=== PATIENT | male | born 1930 | race Caucasian/White ===

== ENCOUNTER → 2018-01-20 14:00 | Outpatient (CLI) | payer MEDICARE ==
[~2018-01-20 14:00] MED LIST: ASPIRIN EC325 M1 PO; BETAPACE 80 MG80 MG PO; LIPITOR40 MG PO; NORVASC5 MG PO; PLAVIX75 MG PO
[2018-02-03 13:10] VITALS: BMI 26.3
== END | disposition home or self-care (01) ==
LOC: D.CT 14:00
DX: I65.23 Occlusion and stenosis of bilateral carotid arteries (principal)

== ENCOUNTER 2018-02-01 16:06 | Inpatient (IN) | payer MEDICARE ==
[~2018-02-01] VITALS: Ht 170.2 cm; Wt 78.6 kg
[2018-02-01 17:18] LABS: BASOPHILS 0.6 % (0-2); HEMATOCRIT 34.5 % (42.0-54.0); HEMOGLOBIN 11.7 g/dL (13.5-17.5); IMMATURE GRANULOCYTES 0.4 % (0-5); MCH 32.1 pg (26.0-34.0); MCHC 33.9 g/dL (31.0-37.0); MCV 94.8 fL (80.0-100.0); MEAN PLATELET VOLUME 10.8 fL (7.4-10.4); MONOCYTES 12.2 % (2-11); NEUTROPHILS 47.8 % (40-80); PLATELET COUNT 165 10x3/uL (130-400); RBC 3.64 10x6/uL (4.20-6.10); RDW 13.2 % (11.5-14.5); WBC 5.1 10x3/uL (4.8-10.8)
[2018-02-01 17:41] LABS: INR 1.03 (0.85-1.17); PROTIME 13.1 SECONDS (11.6-15.0)
[2018-02-01 17:42] LABS: APTT 32.2 SECONDS (22.8-39.4)
[2018-02-01 17:48] LABS: ALBUMIN 3.4 g/dL (3.4-5.0); ALKALINE PHOSPHATASE 64 U/L (46-116); ALT (SGPT) 26 U/L (10-68); BILIRUBIN - TOTAL 0.46 mg/dL (0.2-1.3); CALC OSMOLALITY 282 mosm/kg (275-300); CALCIUM 8.8 mg/dL (8.5-10.1); CARBON DIOXIDE 26.4 mmol/L (21.0-32.0); CHLORIDE - SERUM 104 mmol/L (98-107); CREATININE - SERUM 0.8 mg/dL (0.6-1.3); GLUCOSE 104 mg/dL (74-106); POTASSIUM - SERUM 4.8 mmol/L (3.5-5.1); PROTEIN - SERUM 6.5 g/dL (6.4-8.2); SODIUM 140 mmol/L (136-145); UREA NITROGEN 24 mg/dL (7-18); eGFR NON AFRICAN AMERICAN > 90 mL/min (90-120)
[2018-02-01 21:25] VITALS: BP 142/78
[2018-02-01 23:21] VITALS: BP 142/78; BMI 26.9
[2018-02-02 00:50] VITALS: BP 127/70
[2018-02-02 04:50] VITALS: BP 102/45
[2018-02-02] MEDS ORDERED: NORVASC5 MG PO (07:13)
[2018-02-02] MEDS ORDERED: LIPITOR40 MG PO (07:14)
[2018-02-02] MEDS ORDERED: BETAPACE 80 MG80 MG PO (07:14)
[2018-02-02] MEDS ORDERED: ASPIRIN EC325 M1 PO (07:15)
[2018-02-02 08:08] VITALS: BP 133/83
[2018-02-02 11:06] VITALS: BP 139/86
[2018-02-02 15:45] VITALS: BP 140/90
[2018-02-02 20:00] VITALS: BP 115/74
[2018-02-03 01:00] VITALS: BP 122/59
[2018-02-03 05:11] VITALS: BP 130/50
[2018-02-03 08:16] VITALS: BP 92/43
[2018-02-03 11:56] VITALS: BP 113/57
[2018-02-03 13:10] VITALS: Ht 170.2 cm; Wt 78.6 kg
[2018-02-03 15:48] VITALS: BP 110/65
[2018-02-03 20:00] VITALS: BP 137/102
[2018-02-04 01:00] VITALS: BP 110/61
[2018-02-04 04:30] VITALS: BP 97/43
[2018-02-04 10:05] VITALS: BP 136/66
[2018-02-04 12:22] VITALS: BP 127/78
[2018-02-04 16:58] VITALS: BP 118/73
[2018-02-04 21:00] VITALS: BP 160/58
[2018-02-05 02:30] VITALS: BP 111/60
[2018-02-05 05:00] VITALS: BP 99/45
[2018-02-05 05:54] LABS: BASOPHILS 0.5 % (0-2); EOSINOPHILS 6.6 % (0-7); HEMATOCRIT 36.5 % (42.0-54.0); HEMOGLOBIN 12.4 g/dL (13.5-17.5); IMMATURE GRANULOCYTES 0.2 % (0-5); MCH 32.1 pg (26.0-34.0); MCV 94.6 fL (80.0-100.0); MEAN PLATELET VOLUME 10.5 fL (7.4-10.4); MONOCYTES 10.9 % (2-11); NEUTROPHILS 52.8 % (40-80); PLATELET COUNT 162 10x3/uL (130-400); RBC 3.86 10x6/uL (4.20-6.10); RDW 13.1 % (11.5-14.5); WBC 5.5 10x3/uL (4.8-10.8)
[2018-02-05 06:22] LABS: CALC OSMOLALITY 284 mosm/kg (275-300); CALCIUM 9.2 mg/dL (8.5-10.1); CARBON DIOXIDE 27.7 mmol/L (21.0-32.0); CHLORIDE - SERUM 105 mmol/L (98-107); CREATININE - SERUM 0.9 mg/dL (0.6-1.3); GLUCOSE 108 mg/dL (74-106); POTASSIUM - SERUM 4.3 mmol/L (3.5-5.1); SODIUM 140 mmol/L (136-145); UREA NITROGEN 26 mg/dL (7-18); eGFR NON AFRICAN AMERICAN 84 mL/min (90-120)
[2018-02-05 09:07] VITALS: BP 122/65
[2018-02-05 12:51] VITALS: BP 90/43
[2018-02-05 16:41] VITALS: BP 97/51
[2018-02-05 20:00] VITALS: BP 116/50
[2018-02-06 01:00] VITALS: BP 100/53
[2018-02-06 04:00] VITALS: BP 116/56
[2018-02-06 08:52] VITALS: BP 129/77
[2018-02-06 11:29] VITALS: BP 103/57
[2018-02-06] MEDS ORDERED: BETAPACE 80 MG80 MG PO (14:46)
[2018-02-06] MEDS ORDERED: PLAVIX75 MG PO (14:46)
[2018-02-06 16:15] VITALS: BP 91/52
== END 2018-02-06 17:24 | disposition home health service (06) | DRG 68 ==
LOC: D.ER 16:06 → D.EDHOLD 17:16 → D.M2 17:16
PROVIDERS: Emergency Medicine; Family Medicine
DX: I65.22 Occlusion and stenosis of left carotid artery (principal); I48.91 Unspecified atrial fibrillation; R00.1 Bradycardia, unspecified; I10 Essential (primary) hypertension; I25.10 Atherosclerotic heart disease of native coronary artery without angina pectoris; Z95.1 Presence of aortocoronary bypass graft; Z86.73 Personal history of transient ischemic attack (TIA), and cerebral infarction without residual deficits

== ENCOUNTER → 2018-05-29 13:01 | Outpatient (CLI) | payer OTHER ==
[2018-02-03 13:10] VITALS: BMI 26.3
== END | disposition home or self-care (01) ==
LOC: D.CT 13:00
DX: R93.8 Abnormal findings on diagnostic imaging of other specified body structures (principal)

== ENCOUNTER 2018-07-05 12:57 | Emergency (ER) | payer OTHER ==
[~2018-07-05] VITALS: Ht 170.2 cm; Wt 75.0 kg
[2018-07-05 13:17] VITALS: Ht 170.2 cm; Wt 75.0 kg
[2018-07-05 16:36] LABS: BASOPHILS 0.5 % (0-2); EOSINOPHILS 2.8 % (0-7); HEMATOCRIT 35.4 % (42.0-54.0); HEMOGLOBIN 12.2 g/dL (13.5-17.5); IMMATURE GRANULOCYTES 0.2 % (0-5); LYMPHOCYTES 36.4 % (15-50); MCH 32.4 pg (26.0-34.0); MCHC 34.5 g/dL (31.0-37.0); MCV 94.1 fL (80.0-100.0); MEAN PLATELET VOLUME 10.3 fL (7.4-10.4); MONOCYTES 9.9 % (2-11); NEUTROPHILS 50.2 % (40-80); PLATELET COUNT 141 10x3/uL (130-400); RBC 3.76 10x6/uL (4.20-6.10); RDW 12.9 % (11.5-14.5); WBC 4.3 10x3/uL (4.8-10.8)
[2018-07-05 16:55] LABS: ALBUMIN 3.7 g/dL (3.4-5.0); ALKALINE PHOSPHATASE 58 U/L (46-116); ALT (SGPT) 23 U/L (10-68); BILIRUBIN - TOTAL 0.58 mg/dL (0.2-1.3); CALC OSMOLALITY 280 mosm/kg (275-300); CALCIUM 8.9 mg/dL (8.5-10.1); CARBON DIOXIDE 29.9 mmol/L (21.0-32.0); CHLORIDE - SERUM 105 mmol/L (98-107); CREATININE - SERUM 0.8 mg/dL (0.6-1.3); GLUCOSE 102 mg/dL (74-106); POTASSIUM - SERUM 4.1 mmol/L (3.5-5.1); PROTEIN - SERUM 6.8 g/dL (6.4-8.2); SODIUM 139 mmol/L (136-145); UREA NITROGEN 20 mg/dL (7-18); eGFR NON AFRICAN AMERICAN > 90 mL/min (90-120)
[2018-07-05 16:57] LABS: INR 1.07 (0.85-1.17); PROTIME 13.5 SECONDS (11.6-15.0)
[2018-07-05] MEDS ORDERED: ZITHROMAX250 MG PO (18:34)
[2018-07-05] MEDS ORDERED: ANTIVERT12.5 MG PO (18:34)
[2018-07-05] MEDS ORDERED: ULTRAM50 MG PO (18:34)
[2018-07-05 19:07] VITALS: BP 115/45
== END 2018-07-05 19:09 | disposition home or self-care (01) ==
LOC: D.ER 12:57
PROVIDERS: Emergency Medicine
DX: R51 Headache (principal); R42 Dizziness and giddiness; Z86.73 Personal history of transient ischemic attack (TIA), and cerebral infarction without residual deficits; I10 Essential (primary) hypertension

== ENCOUNTER → 2018-07-28 08:41 | Outpatient (CLI) | payer OTHER ==
[2018-07-05 13:17] VITALS: BMI 25.9
[~2018-07-28 08:41] MED LIST changes: +ANTIVERT12.5 MG PO; +ULTRAM50 MG PO; +ZITHROMAX250 MG PO
== END | disposition home or self-care (01) ==
LOC: D.RAD 08:30
DX: K59.09 Other constipation (principal); K92.1 Melena

== ENCOUNTER → 2018-08-02 12:44 | Outpatient (CLI) | payer OTHER ==
[2018-07-05 13:17] VITALS: BMI 25.9
[2018-08-05 05:15] LABS: IMMUNOGLOBULIN E 312 IU/mL (0-100)
== END | disposition home or self-care (01) ==
LOC: D.RT 12:44
PROVIDERS: Internal Medicine Pulmonary Disease
DX: J44.9 Chronic obstructive pulmonary disease, unspecified (principal); J92.0 Pleural plaque with presence of asbestos

== ENCOUNTER → 2018-11-23 12:22 | Outpatient (CLI) | payer OTHER ==
[2018-07-05 13:17] VITALS: BMI 25.9
== END | disposition home or self-care (01) ==
LOC: D.MRI 12:22
DX: R20.2 Paresthesia of skin (principal)

== ENCOUNTER → 2018-12-19 16:56 | Outpatient (CLI) | payer OTHER ==
[2018-07-05 13:17] VITALS: BMI 25.9
== END | disposition home or self-care (01) ==
LOC: D.LABREF 16:56
PROVIDERS: ATTEND Orthopaedic Surgery
DX: M17.12 Unilateral primary osteoarthritis, left knee (principal)

== ENCOUNTER 2019-01-04 13:26 | Inpatient (IN) | payer OTHER ==
[~2019-01-04] VITALS: Ht 170.2 cm; Wt 79.5 kg
[2019-01-10] MEDS ORDERED: VITAMIN PO (10:29)
[2019-01-10] MEDS ORDERED: CALCIUM 600 +1 EAC3 PO (10:30)
[2019-01-10] MEDS ORDERED: [UNRECOGNIZED DRUG - OTHER] (10:30)
[2019-01-10 11:56] LABS: CALC OSMOLALITY 282 mosm/kg (275-300); CALCIUM 9.4 mg/dL (8.5-10.1); CARBON DIOXIDE 32.9 mmol/L (21.0-32.0); CHLORIDE - SERUM 104 mmol/L (98-107); CREATININE - SERUM 0.9 mg/dL (0.6-1.3); GLUCOSE 105 mg/dL (74-106); INR 1.02 (0.85-1.17); POTASSIUM - SERUM 4.2 mmol/L (3.5-5.1); PROTIME 12.9 SECONDS (11.6-15.0); SODIUM 141 mmol/L (136-145); UREA NITROGEN 19 mg/dL (7-18); eGFR NON AFRICAN AMERICAN 84 mL/min (90-120)
[2019-01-10 11:57] LABS: APTT 35.9 SECONDS (22.8-39.4)
[2019-01-10 12:14] LABS: BASOPHILS 0.7 % (0-2); EOSINOPHILS 2.8 % (0-7); HEMOGLOBIN 12.4 g/dL (13.5-17.5); IMMATURE GRANULOCYTES 0.2 % (0-5); MCH 32.5 pg (26.0-34.0); MCHC 34.4 g/dL (31.0-37.0); MCV 94.5 fL (80.0-100.0); MONOCYTES 12.2 % (2-11); NEUTROPHILS 50.1 % (40-80); PLATELET COUNT 137 10x3/uL (130-400); RBC 3.81 10x6/uL (4.20-6.10); WBC 4.6 10x3/uL (4.8-10.8)
[2019-01-10 12:45] LABS: APPEARANCE CLEAR (CLEAR); BILIRUBIN NEGATIVE (NEGATIVE); COLOR YELLOW (YELLOW); GLUCOSE NEGATIVE (NEGATIVE); KETONE NEGATIVE (NEGATIVE); NITRITE NEGATIVE (NEGATIVE); PROTEIN NEGATIVE (NEGATIVE); SPECIFIC GRAVITY 1.025 (1.005-1.020); UROBILINOGEN NORMAL (NORMAL)
[2019-01-10 12:46] LABS: BACTERIA FEW /hpf (NONE SEEN); EPITHELIAL CELLS 0-5 /hpf (0-5); MUCUS <1+ /lpf (NONE SEEN); RED CELLS - URINE 0-5 /hpf (0-5)
[2019-01-15 06:33] VITALS: BP 110/48; BMI 26.7
--- NOTE | 2019-01-15 11:52 | NUR ---
1115 - PT MEETS DISCHARGE CRITERIA, NO BED AVAILABLE. SWITCHING PT TO PHASE 2 PROTOCOL.
--- NOTE | 2019-01-15 12:17 | NUR ---
1215 - PT STABLE, RESTING COMFORTABLY. MAINTAINING PHASE II PROTOCOL. NO BED AVAILABLE FOR TRANSFER.
--- NOTE | 2019-01-15 13:33 | NUR ---
MEPILEX PLACED ON BILATERAL HEELS, INCETIVE SPIROMETER GIVEN AND EDUCATATION GIVEN, PT VERBALIZES AND DEMONSTRATES UNDERSTANDING.
--- NOTE | 2019-01-15 20:06 | NUR ---
2005 REPORT PHONED TO DOUGLAS, TO 2208 BY FRANCIA.
--- NOTE | 2019-01-15 20:30 | NUR ---
RECIEVED TO FLOOR ACCOMPANIED BY HOSPITAL STAFF AND SON. DENIES PAIN AT THIS TIME. VITAL SIGN STABLE. PT APPEARS A&O X 4, WITH MOMENTS OF CONFUSION. NO REQUESTS AT THIS TIME, WILL CONTINUE TO MONITOR. PT PLACED ON CPM.
[2019-01-15] MEDS ORDERED: FLUTICASONE PRO16 GM NASAL (23:32)
[2019-01-15] MEDS ORDERED: SINGULAIR10 MG PO (23:33)
[2019-01-16 01:02] VITALS: Ht 170.2 cm; Wt 79.5 kg
[2019-01-16 04:00] VITALS: BP 101/51
[2019-01-16 05:38] LABS: HEMATOCRIT 29.2 % (42.0-54.0); HEMOGLOBIN 9.8 g/dL (13.5-17.5); MCH 31.5 pg (26.0-34.0); MCHC 33.6 g/dL (31.0-37.0); MCV 93.9 fL (80.0-100.0); MEAN PLATELET VOLUME 10.7 fL (7.4-10.4); RBC 3.11 10x6/uL (4.20-6.10); RDW 12.9 % (11.5-14.5); WBC 4.9 10x3/uL (4.8-10.8)
[2019-01-16 08:27] VITALS: BP 120/57
--- NOTE | 2019-01-16 09:38 | NUR ---
PT SITTING UP EATING BREAKFAST, HAD TAKEN PT OFF CPM AT 0900, PT STATED HE TOLERATED WELL UNTIL LAST 30MINS HE STARTED TO FEEL PRESSURE IN KNEES. NO NEEDS VOICED, STATED PAIN IS AT A 2 NOW, WILL CONTINUE WITH PLAN OF CARE
--- NOTE | 2019-01-16 11:28 | NUR ---
Rehab Note- Acute Inpatient Rehba prescreen order received. The patient has [employer] insurance and will require a PreAuth. She has a pending OT/PT Eval that will be needed for the PreAuth process. Will continue to follow at this time. Thank you for this referral! Geovanna Anderson RN Clinical Liaison, [facility] Rehab
--- NOTE | 2019-01-16 11:41 | NUR ---
PT SITTING UP IN CHAIR NO NEDS VOICED, CONTINUE WITH PLAN OF CARE
[2019-01-16 12:45] VITALS: BP 98/58
--- NOTE | 2019-01-16 13:38 | NUR ---
PT SITTING UP IN CHAIR HAVING LUNCH, REQUESTED COFFEE WITH LUNCH STATED STARTING TO GET SORE IN KNEE, DECLINED PAIN MEDS, CONTINUE WITH PLAN OF CARE
--- NOTE | 2019-01-16 14:25 | NUR ---
I have reviewed this patient and I concur with the Shift Assessment completed by the Licensed Practical Nurse today this shift.
--- NOTE | 2019-01-16 15:59 | NUR ---
PT SITTING AT EDGE OF BED WANTING TO GET UP AND MOVE AROUND BECAUSE HE STATES " I HAVE THINGS TO DO" ADVISED PT HE IS A FALL RISK AND WE DO NOT WANT HIM HURTING HIMSELF AND FALLING PT STATES HE JUST WANTS TO WASH HIS FACE AND HAVE ANTOINE BANDAGE REMOVED, PT HAS MUCINEX WELL SOLANPAS OITMENT IN ROOM HE WANTS TO USE. ADVISED PT HE JUST HAD MUCINEX THIS MORNING. PT STATES THE LIQUID WORKS BETTER. HAVING SOLAR PHOTOVOLTAIC INSTALLER CALL PT FAMILY
[2019-01-16 16:45] VITALS: BP 133/52
--- NOTE | 2019-01-16 17:09 | NUR ---
OT NOTE: PT COMPLETED BED MOB WITH MIN A. PT COMPLETED BUE AROM EXS. THANK YOU, [employer]INC[employer] SALES
[2019-01-16 20:00] VITALS: BP 128/62
--- NOTE | 2019-01-16 21:30 | NUR ---
REMOVED FROM CPM. TOLERATED WELL. DENIES PAIN. WILL CONTINUE TO MONITOR.
[2019-01-17] VITALS: BP 132/63
[2019-01-17 04:00] VITALS: BP 121/56
--- NOTE | 2019-01-17 04:21 | NUR ---
I have reviewed this patient and I concur with the Shift Assessment completed by the Licensed Practical Nurse today this shift.
[2019-01-17 05:29] LABS: HEMOGLOBIN 9.8 g/dL (13.5-17.5); MCH 32.9 pg (26.0-34.0); MEAN PLATELET VOLUME 11.1 fL (7.4-10.4); RBC 2.98 10x6/uL (4.20-6.10); RDW 12.9 % (11.5-14.5)
[2019-01-17 09:41] VITALS: BP 139/67
--- NOTE | 2019-01-17 13:44 | NUR ---
Rehab Note- Clinicals faxed for review to [facility] for possible inpatient acute rehab stay. Will continue to follow at this time. Thank you for this referral! Geovanna Anderson RN Clinical Liaison, [facility] Rehab
--- NOTE | 2019-01-17 14:57 | MORECARE ---
CASE MANAGEMENT DISCHARGE SUMMARY PATIENT: SEVERO FINK UNIT: [id number] ADM DATE: 01/15/19 AGE: 88 : [birth year] SEX: M ROOM/BED: D.2208 AUTHOR: DUSTIN JUAREZ PHYSICIAN: REFERRING PHYSICIAN: MICHAELLE JACINTO MD DATE OF SERVICE: 01/17/19 Discharge Plan Patient Name: SEVERO FINK Facility: [facility]:[place] : 1930 Planned Disposition: Inpatient Rehab Anticipated Discharge Date: Discharge Date: Expected LOS: Initial Reviewer: [email or web address] Initial Review Date: 01/15/2019 Generated: 01/17/19 3:57 pm External Providers External Provider: [facility] Contact Date: Service Request Date: Service Type: Resolution: Reviewer: Comments: Patient Name: SEVERO FINK Page [phone] at 1457 All edits/amendments must be made on the electronic document DICTATION DATE: 01/17/197 CERTIFIED RESIDENTIAL MEDICATION AIDE: MICKI 01/17/19 1457 RPT#: [id number] DC DATE: STATUS: ADM IN [facility] [address] [place] [address] END OF REPORT
--- NOTE | 2019-01-17 15:08 | MORECARE ---
CASE MANAGEMENT DISCHARGE SUMMARY PATIENT: SEVERO FINK UNIT: [id number] ADM DATE: 01/15/19 AGE: 88 : [birth year] SEX: M ROOM/BED: D.2208 AUTHOR: DUSTIN JUAREZ PHYSICIAN: REFERRING PHYSICIAN: MICHAELLE JACINTO MD DATE OF SERVICE: 01/17/19 Discharge Plan Patient Name: SEVERO FINK Facility: [facility]:[place] : 1930 Planned Disposition: Inpatient Rehab Anticipated Discharge Date: Discharge Date: Expected LOS: Initial Reviewer: [email or web address] Initial Review Date: 01/15/2019 Generated: 01/17/19 4:07 pm Comments DCP- Discharge Planning Updated by [id number]: Beth Elliott on 01/17/19 1:[address] Attempted to see patient, but he was sleeping and there is was not any family at the bedside. Per Myrna Arredondo the patient [facility], so a referral was made yesterday and we are waiting on pre auth Last DP export: 01/17/19 1:57 p Patient Name: SEVERO FINK Page 63718 at 1508 All edits/amendments must be made on the electronic document DICTATION DATE: 01/17/191506 ENTRY LEVEL PROJECT ENGINEER: MICKI 01/17/191506 RPT#: [id number] DC DATE: STATUS: ADM IN [facility] [address] [place] [address] END OF REPORT
[2019-01-17 15:09] VITALS: BP 109/53
[2019-01-17 16:00] VITALS: BP 123/67
--- NOTE | 2019-01-17 16:11 | NUR ---
OT NOTE: PT COMPLETED BED MOB WITH MIN A. PT COMPLETED BUE AROM EX. PT COMPLETED HYGIENE TASK WITH SET UP. THANK YOU, [employer]
--- NOTE | 2019-01-17 16:12 | NUR ---
OT NOTE: PT COMPLETED BED MOB AND SIT TO STAND WITH CGA. PT COMPLETED HAIR GROOMING WITH SET UP. THANK YOU, VINCENZO ASLES
--- NOTE | 2019-01-17 18:44 | NUR ---
I have reviewed this patient and I concur with the Shift Assessment completed by the Licensed Practical Nurse today this shift.
--- NOTE | 2019-01-17 19:55 | NUR ---
PT RESTING IN BED. ALERT AND ORIENTED. NO SIGNS OF DISTRESS. BREATHING EVEN AND UNLABORED. PT STATES NO PROBLEMS AT THIS TIME. IV SITE LT FA DRESSING CLEAN DRY AND INTACT. NO SIGNS OF INFECTION. LT KNEE DRESSING CLEAN DRY AND INTACT. LT LOWER LEG SWELLING PRESENT. WILL CONTINUE PLAN OF CARE CALL LIGHT IN REACH. BED LOWERED AND LOCKED. BED RAILS UP X2.
[2019-01-17 20:00] VITALS: BP 145/64
[2019-01-18] VITALS: BP 141/77
--- NOTE | 2019-01-18 03:34 | NUR ---
I have reviewed this patient and I concur with the Shift Assessment completed by the Licensed Practical Nurse today this shift.
[2019-01-18 04:00] VITALS: BP 119/60
[2019-01-18 08:33] VITALS: BP 129/68
[2019-01-18 11:46] VITALS: BP 100/59
--- NOTE | 2019-01-18 12:03 | NUR ---
Rehab Note- Spoke with Miriam with [facility]- stated that the Auth is still pending that they have 24-48hrs to make a determination. Will continue to await determination for possible acute inpatient rehab stay. Thank you for this referral! Madelyn Anderson RN CLinical Liaison, [facility] Rehab
--- NOTE | 2019-01-18 12:08 | NUR ---
Rehab Note- Kayley silva/ ESTHER [facility] & stated that the [facility]. Geovanna Anderson RN CLinical Liaison, [facility] Rehab
[2019-01-18] MEDS ORDERED: ELIQUIS2.5 MG PO (15:53)
[2019-01-18] MEDS ORDERED: MUCINEX600 MG PO (15:54)
[2019-01-18] MEDS ORDERED: HYDROCODON-ACE1 EA10 PO ×2 (15:56→15:58)
[2019-01-18] MEDS ORDERED: SENNA8.6 MG PO (15:56)
[2019-01-18] MEDS ORDERED: ZOFRAN4 MG PO (15:57)
--- NOTE | 2019-01-18 16:03 | MORECARE ---
CASE MANAGEMENT DISCHARGE SUMMARY PATIENT: SEVERO FINK UNIT: [id number] ADM DATE: 01/15/19 AGE: 88 : [birth year] SEX: M ROOM/BED: D.2208 AUTHOR: ANNDOC PHYSICIAN: REFERRING PHYSICIAN: MICHAELLE JACINTO MD DATE OF SERVICE: 01/18/19 Discharge Plan Patient Name: SEVERO FINK Facility: [facility]:[place] : 1930 Planned Disposition: Inpatient Rehab Anticipated Discharge Date: Discharge Date: Expected LOS: Initial Reviewer: [email or web address] Initial Review Date: 01/15/2019 Generated: 01/18/19 5:03 pm Comments DCP- Discharge Planning Updated by [email or web address]: Beth Elliott on 01/17/19 1:[address] Attempted to see patient, but he was sleeping and there is was not any family at the bedside. Per Myrna Arredondo the patient [facility], so a referral was made yesterday and we are waiting on pre auth DCPIA - Discharge Planning Initial Assessment Updated by [email or web address]: Beth Elliott on 01/18/19 3:58 pm * Is the patient Alert and Oriented? Yes * How many steps to enter\exit or inside your home? ELEVATOR * PCP MARITA * Pharm[facility] * Preadmission Environment Home with Family * ADLs Independent * Equipment Oxygen * List name and contact numbers for known caregivers / representatives who currently or will assist patient after discharge: CATARINA (SON) [phone] * Verbal permission to speak to the caregivers and representatives has been obtained from the patient. N/A * Community resources currently utilized None * Additional services required to return to the preadmission environment? No * Can the patient safely return to the preadmission environment? Yes * Has this patient been hospitalized within the prior 30 days at any hospital? No Coverage Notice Reviewer: [email or web address] - Beth Elliott Notice Issued Date-Time: 01/18/2019 15:55 Notice Type: IM Discharge Notice Notice Delivered To: Family Member Relationship to Patient: Son Resource Analyst Name: CATARINA Delivery Method: HAND - Hand Delivered Katie Days: Prior Verbal Notification: Recipient Understood Notice: Yes Recipient Signature: Yes Med Rec Note Co-signed by Attending: Coverage Notice Comment: Last DP export: 01/17/19 2:07 p Patient Name: SEVERO FINK Page 54572 at 1603 All edits/amendments must be made on the electronic document DICTATION DATE: 01/18/191602 REGIONAL BUSINESS DEVELOPMENT MANAGER: MICKI 01/18/191602 RPT#: [id number] DC DATE: STATUS: ADM IN [facility] [address] [place] [address] END OF REPORT
--- NOTE | 2019-01-18 16:12 | MORECARE ---
CASE MANAGEMENT DISCHARGE SUMMARY PATIENT: SEVERO FINK UNIT: [id number] ADM DATE: 01/15/19 AGE: 88 : [birth year] SEX: M ROOM/BED: D.2208 AUTHOR: ANN,DOC PHYSICIAN: REFERRING PHYSICIAN: MICHAELLE JACINTO MD DATE OF SERVICE: 01/18/19 Discharge Plan Patient Name: SEVERO FINK Facility: [facility]:[place] : 1930 Planned Disposition: Inpatient Rehab Anticipated Discharge Date: Discharge Date: Expected LOS: Initial Reviewer: [email or web address] Initial Review Date: 01/15/2019 Generated: 01/18/19 5:11 pm Comments DCP- Discharge Planning Updated by [email or web address]: Beth Elliott on 01/18/19 3:[address] Patient Name: SEVERO FINK Admission Status: Elective Accout number: [id number] Admission Date: 01-15-2019 : 1930 Admission Diagnosis:UNILATERAL PRIMARY OSTEOARTHRITIS, LEFT KNEE Attending: MICHAELLE JACINTO Current LOS: 3 Anticipated DC Date: Planned Disposition: Inpatient Rehab Primary Insurance: [employer] Discharge Planning Comments: CM met with patient to complete initial dc planning assessment. CM educated patient on the CM role and verbal consent given by patient to complete assessment. Patient lives at home where he was independent with his care. At discharge patient plans to go to [facility] rehab and feels this is a safe discharge. IMM served and explained to son, patient was on the phone. Patient will be discharging to [facility] rehab today. Son stated that his dad has, home O2 concentrator from [facility]. Patient denied known discharge needs at this time. CM will continue to follow and will assist as needed with dc plans/needs. Sugar Grinder: Beth Elliott DCP- Discharge Planning Updated by [email or web address]: Beth Elliott on 01/17/19 1:[address] Attempted to see patient, but he was sleeping and there is was not any family at the bedside. Per Myrna Arredondo the patient wanted [facility] inpatient rehab, so a referral was made yesterday and we are waiting on pre auth DCPIA - Discharge Planning Initial Assessment Updated by [email or web address]: Beth Elliott on 01/18/19 3:58 pm * Is the patient Alert and Oriented? Yes * How many steps to enter\exit or inside your home? ELEVATOR * PCP ROBERTAO * Pharmacy [facility] * Preadmission Environment Home with Family * ADLs Independent * Equipment Oxygen * List name and contact numbers for known caregivers / representatives who currently or will assist patient after discharge: CATARINA (SON) [phone] * Verbal permission to speak to the caregivers and representatives has been obtained from the patient. N/A * Community resources currently utilized None * Additional services required to return to the preadmission environment? No * Can the patient safely return to the preadmission environment? Yes * Has this patient been hospitalized within the prior 30 days at any hospital? No Coverage Notice Reviewer: [id number] - Beth Elliott Notice Issued Date-Time: 01/18/2019 15:55 Notice Type: IM Discharge Notice Notice Delivered To: Family Member Relationship to Patient: Son Air Control Electronics Operator Name: CATARINA Delivery Method: HAND - Hand Delivered Katie Days: Prior Verbal Notification: Recipient Understood Notice: Yes Recipient Signature: Yes Med Rec Note Co-signed by Attending: Coverage Notice Comment: Last DP export: 01/18/19 3:03 p Patient Name: SEVERO FINK Page 42568 at 1612 All edits/amendments must be made on the electronic document DICTATION DATE: 01/18/191610 POTATO INSPECTOR: MICKI 01/18/191610 RPT#: [id number] DC DATE: STATUS: ADM IN [facility] [address] [place] [address] END OF REPORT
[2019-01-18 16:52] VITALS: BP 131/78
--- NOTE | 2019-01-18 17:15 | NUR ---
OT NOTE: PT COMPLETED BED MOB WITH MIN A. PT COMPLETED EOB SITTING WITH SBA. PT COMPLETED HAIR BRUSHING WITH SET UP. PT COMPLETED UE EXS. THANK YOU, [employer]
--- NOTE | 2019-01-18 18:53 | NUR ---
I have reviewed this patient and I concur with the Shift Assessment completed by the Licensed Practical Nurse today this shift.
--- NOTE | 2019-01-19 11:19 | OP ---
PATIENT NAME: SEVERO FINK MEDICAL RECORD: [id number] :[birth year] LOCATION:D.MS [id number] ADMISSION DATE:01/15/19 SURGEON: MICHAELLE JACINTO MD DATE OF OPERATION: 01/15/2019 PREOPERATIVE DIAGNOSIS: Degenerative arthritis of the left knee. POSTOPERATIVE DIAGNOSIS: Degenerative arthritis of the left knee. PROCEDURE: Left total knee arthroplasty. SURGEON: Michaelle Jacinto MD BAND AID MACHINE OPERATOR: Joao Baez INTRAOPERATIVE COMPLICATIONS: None. SUMMARY OF PATHOLOGIC FINDINGS: Extreme bicompartmental osteoarthritis consistent with the patient's preoperative diagnosis. IMPLANTS USED: Aparna triathlon total knee arthroplasty size 5 distal femur, 5 tibial base plate, 13 tibial insert, and a size 31 x 9 patellar component, all cemented. OPERATIVE SUMMARY IN DETAIL: After obtaining the appropriate preoperative orthopedic surgery consent as well as anesthetic consultation, evaluation, and clearance, the patient was brought to the operating room and placed on the operating table in supine position. After general laryngeal mask airway was administered, tourniquet was placed on the proximal aspect of the left lower extremity. Left lower extremity was then prepped and draped in routine sterile fashion. The leg was elevated and exsanguinated, tourniquet was inflated to 350 mmHg. Midline incision was taken down for a paramedian arthrotomy. Patella was everted, distal femur was exposed. Soft tissue excision was done in the usual fashion. An intramedullary guide hole was created for distal intramedullary guided cut. Having completed this, proximal tibia was exposed in its entirety. Residual soft tissue was removed followed by intramedullary guide hole that was created for proximal tibial cutting. Measurements were taken. Chamfer cuts were then made on the distal femur. Trials were put into place, taken through range of motion and found to be stable trial that is corresponding to the above final implants. Having completed this, final distal femoral preparations and proximal tibial preparations were made followed by excision of the patella arthritic surface. Final patellar preparations were made likewise. The wound was irrigated in pulsatile lavage to remove all loose debris. Bone ends were dried. Final components were cemented in place. All excess cement was removed after the bone was allowed to harden. The knee was taken through range of motion and found to be stable in all planes with good patellar tracking. A gram of vancomycin, a gram clindamycin, and a gram of TXA was then placed in the knee. Paramedian arthrotomy was closed with #2 Ethibond by Joao Baez. Also, the skin closure was done by Joao Baez with #1 Vicryl, 2-0 Vicryl, and skin marcy. Sterile dressings were applied. Tourniquet was deflated. The patient was awakened and taken to recovery room in stable condition. All final needle and sponge counts were correct. TRANSINT:[id number] Voice Confirmation ID: [id number] DOCUMENT ID: [id number] OPERATIVE REPORT [id number] SEVERO FINK MD, MICHAELLE RUTLEDGE at 1119 CC: [id number] DICTATION DATE: 01/15/19 1016 TAPER/FINISHER: 01/15/19 1218 DIS IN 01/18/19 [place] [id number] [place] [address]
== END 2019-01-18 19:26 | DRG 470 ==
LOC: D.MS 01-15 05:00 → D.SDCHOLD 01-15 05:00 → D.MS 01-15 20:08
PROVIDERS: ADMIT Orthopaedic Surgery; ATTEND Orthopaedic Surgery
PROC: 0SRD0JZ Replacement of Left Knee Joint with Synthetic Substitute, Open Approach (ICD-10-PCS; principal; 2019-01-15 09:00)
DX: M17.12 Unilateral primary osteoarthritis, left knee (principal); I10 Essential (primary) hypertension; I25.10 Atherosclerotic heart disease of native coronary artery without angina pectoris

== ENCOUNTER → 2019-02-21 09:55 | Outpatient (CLI) | payer OTHER ==
[2019-01-16 01:02] VITALS: BMI 27.4
[~2019-02-21 09:55] MED LIST changes: +CALCIUM 600 +1 EAC3 PO; +ELIQUIS2.5 MG PO; +FLUTICASONE PRO16 GM NASAL; +HYDROCODON-ACE1 EA10 PO; +MUCINEX600 MG PO; +SENNA8.6 MG PO; +SINGULAIR10 MG PO; +VITAMIN PO; +ZOFRAN4 MG PO; +[UNRECOGNIZED DRUG - OTHER]
== END | disposition home or self-care (01) ==
LOC: D.US 09:55
PROVIDERS: ATTEND Internal Medicine Cardiovascular Disease
DX: I65.23 Occlusion and stenosis of bilateral carotid arteries (principal)

== ENCOUNTER 2019-03-14 05:47 | Inpatient (IN) | payer OTHER ==
[2019-03-14] MEDS ORDERED: COLACE100 MG PO (06:03)
[2019-03-14 06:50] VITALS: BP 163/73
--- NOTE | 2019-03-14 06:54 | NUR ---
ASSUMED CARE OF PATIENT AT THIS TIME.
--- NOTE | 2019-03-14 06:54 | NUR ---
REPORT GIVEN TO FRANCIS MENDOZA.
--- NOTE | 2019-03-14 06:55 | NUR ---
NO ACUTE DISTRESS NOTED AT THIS TIME, WILL CONTINUE TO MONITOR FOR CHANGES.
[2019-03-14 07:01] LABS: AMORPHOUS SEDIMENT <1+ /lpf (NONE SEEN); APPEARANCE CLEAR (CLEAR); BACTERIA FEW /hpf (NONE SEEN); BILIRUBIN NEGATIVE (NEGATIVE); COLOR YELLOW (YELLOW); EPITHELIAL CELLS 0-5 /hpf (0-5); GLUCOSE NEGATIVE (NEGATIVE); KETONE SMALL mg/dL (NEGATIVE); MUCUS <1+ /lpf (NONE SEEN); NITRITE NEGATIVE (NEGATIVE); PROTEIN NEGATIVE (NEGATIVE); RED CELLS - URINE 0-5 /hpf (0-5); SPECIFIC GRAVITY 1.015 (1.005-1.020); UROBILINOGEN NORMAL (NORMAL); WHITE CELLS - URINE OCC /hpf (0-5)
[2019-03-14 07:22] LABS: ALBUMIN 3.7 g/dL (3.4-5.0); ALKALINE PHOSPHATASE 60 U/L (46-116); ALT (SGPT) 24 U/L (10-68); BILIRUBIN - TOTAL 0.52 mg/dL (0.2-1.3); CALC OSMOLALITY 283 mosm/kg (275-300); CALCIUM 9.8 mg/dL (8.5-10.1); CARBON DIOXIDE 29.2 mmol/L (21.0-32.0); CHLORIDE - SERUM 103 mmol/L (98-107); CREATININE - SERUM 0.8 mg/dL (0.6-1.3); GLUCOSE 141 mg/dL (74-106); POTASSIUM - SERUM 3.9 mmol/L (3.5-5.1); PROTEIN - SERUM 6.9 g/dL (6.4-8.2); SODIUM 140 mmol/L (136-145); UREA NITROGEN 22 mg/dL (7-18); eGFR NON AFRICAN AMERICAN > 90 mL/min (90-120)
[2019-03-14 07:26] LABS: AMYLASE - SERUM 47 U/L (25-115); LIPASE 86 U/L (73-393)
[2019-03-14 07:27] LABS: TROPONIN-I < 0.017 ng/mL (0.000-0.060)
[2019-03-14 07:43] LABS: BASOPHILS 0.1 % (0-2); EOSINOPHILS 0.6 % (0-7); HEMATOCRIT 32.2 % (42.0-54.0); HEMOGLOBIN 10.9 g/dL (13.5-17.5); IMMATURE GRANULOCYTES 0.3 % (0-5); LYMPHOCYTES 16.3 % (15-50); MCH 32.1 pg (26.0-34.0); MCHC 33.9 g/dL (31.0-37.0); MCV 94.7 fL (80.0-100.0); MEAN PLATELET VOLUME 11.1 fL (7.4-10.4); MONOCYTES 6.9 % (2-11); NEUTROPHILS 75.8 % (40-80); RDW 13.7 % (11.5-14.5)
[2019-03-14 07:44] LABS: PLATELET COUNT 159 10x3/uL (130-400)
[2019-03-14 09:00] VITALS: BP 105/62
[2019-03-14 11:02] VITALS: BMI 25.7
[2019-03-14 11:07] VITALS: BP 110/60
[2019-03-14 14:55] LABS: % SATURATION 16 % (15-55); IRON 48 ug/dl (35-150); TOTAL IRON BIND CAPACITY 289 ug/dl (260-445); UNSAT IRON BIND CAPACITY 241 ug/dl (150-375)
[2019-03-14 18:03] VITALS: BP 115/64
--- NOTE | 2019-03-14 18:48 | NUR ---
PT RESTING IN BED. "WANTING SOMETHING TO EAT" EXPLAINED TO PT HE IS UNABLE DT SBO. PT AGREED. DENIES PAIN. NO S/S OF ACUTE DISTRESS. CL IN PLACE.
[2019-03-14] MEDS ORDERED: DONEPEZIL HCL5 MG PO (19:33)
[2019-03-14 20:00] VITALS: BP 122/62
--- NOTE | 2019-03-14 20:00 | NUR ---
PT LYING IN RESTING, WITHOUT DISTRESS. ALERT AND ORIENTED. NGT TO RIGHT NARE CONNECTED TO LIS. IV RIGHT AC INFUSING NS @ 100 AND PROCAL @ 50. BOWEL SOUNDS HYPOACTIVE X4. NO NAUSEA OR VOMITING. NO PAIN. DENIES NEEDS OTHER THAN STATING HE WANTS SOMETHING TO EAT. EDUCATED ON WHY HE IS NPO. VERBALIZED UNDERSTANDING. CL IN REACH, WILL CTM
[2019-03-15 03:15] VITALS: BP 100/50
[2019-03-15 04:00] VITALS: BP 97/42
--- NOTE | 2019-03-15 05:00 | NUR ---
PT IV RIGHT AC KEEP ALARMING OCCLUDED BECAUSE PT KEEPING ARM BENT AFTER TOLD MULTIPLE TIMES HE HAD TO KEEP ARM STRAIGHT. PT REQUESTED TO HAVE IV RESITED OUT OF AC. RESITED 20G IV RIGHT FA X1 ATTEMPT. DC'D RIGHT AC WITH CATHETER TIP INTACT.
[2019-03-15 06:01] LABS: BASOPHILS 0.3 % (0-2); HEMATOCRIT 29.7 % (42.0-54.0); HEMOGLOBIN 9.9 g/dL (13.5-17.5); IMMATURE GRANULOCYTES 0.3 % (0-5); LYMPHOCYTES 23.7 % (15-50); MCH 31.9 pg (26.0-34.0); MCHC 33.3 g/dL (31.0-37.0); MCV 95.8 fL (80.0-100.0); MEAN PLATELET VOLUME 10.2 fL (7.4-10.4); MONOCYTES 11.3 % (2-11); NEUTROPHILS 62.4 % (40-80); PLATELET COUNT 148 10x3/uL (130-400); RDW 13.9 % (11.5-14.5); WBC 5.9 10x3/uL (4.8-10.8)
[2019-03-15 06:12] LABS: CALC OSMOLALITY 281 mosm/kg (275-300); CALCIUM 8.6 mg/dL (8.5-10.1); CARBON DIOXIDE 28.6 mmol/L (21.0-32.0); CHLORIDE - SERUM 105 mmol/L (98-107); CREATININE - SERUM 0.8 mg/dL (0.6-1.3); GLUCOSE 101 mg/dL (74-106); SODIUM 141 mmol/L (136-145); eGFR NON AFRICAN AMERICAN > 90 mL/min (90-120)
[2019-03-15 06:15] LABS: UREA NITROGEN 14 mg/dL (7-18)
--- NOTE | 2019-03-15 07:25 | NUR ---
PATIENT OFF FLOOR FOR RADIOLOGY AT THIS TIME
[2019-03-15 08:39] LABS: APPEARANCE CLEAR (CLEAR); COLOR YELLOW (YELLOW); SPECIFIC GRAVITY 1.015 (1.005-1.020)
[2019-03-15 08:40] LABS: BILIRUBIN NEGATIVE (NEGATIVE); EPITHELIAL CELLS RARE /hpf (0-5); GLUCOSE NEGATIVE (NEGATIVE); KETONE NEGATIVE (NEGATIVE); NITRITE NEGATIVE (NEGATIVE); PROTEIN NEGATIVE (NEGATIVE); RED CELLS - URINE 0-5 /hpf (0-5); UROBILINOGEN NORMAL (NORMAL); WHITE CELLS - URINE NSEEN /hpf (0-5)
[2019-03-15 08:41] LABS: BACTERIA NONE SEEN /hpf (NONE SEEN)
[2019-03-15 13:35] VITALS: BP 134/59
--- NOTE | 2019-03-15 13:40 | MORECARE ---
CASE MANAGEMENT DISCHARGE SUMMARY PATIENT: SEVERO FINK UNIT: [id number] ADM DATE: 03/14/19 AGE: 88 : [birth year] SEX: M ROOM/BED: D.2240 AUTHOR: DUSTIN JUAREZ PHYSICIAN: REFERRING PHYSICIAN: HARDIK RON MD DATE OF SERVICE: 03/15/19 Discharge Plan Patient Name: SEVERO FINK Facility: [facility]:[place] : 1930 Planned Disposition: Home Anticipated Discharge Date: Discharge Date: Expected LOS: Initial Reviewer: [email or web address] Initial Review Date: 03/15/2019 Generated: 03/15/19 2:40 pm Patient Name: SEVERO FINK Page 97888 at 1340 All edits/amendments must be made on the electronic document DICTATION DATE: 03/15/191338 [employer] SALESPERSON: MICKI 03/15/19 133 RPT#: [id number] DC DATE: STATUS: ADM IN [facility] [address] [place] [address] END OF REPORT
--- NOTE | 2019-03-15 13:47 | MORECARE ---
CASE MANAGEMENT DISCHARGE SUMMARY PATIENT: SEVERO FINK UNIT: [id number] ADM DATE: 03/14/19 AGE: 88 : [birth year] SEX: M ROOM/BED: D.2240 AUTHOR: DUSTIN JUAREZ PHYSICIAN: REFERRING PHYSICIAN: HARDIK RON MD DATE OF SERVICE: 03/15/19 Discharge Plan Patient Name: SEVERO FINK Facility: [facility]:[place] : 1930 Planned Disposition: Home Anticipated Discharge Date: Discharge Date: Expected LOS: Initial Reviewer: [email or web address] Initial Review Date: 03/15/2019 Generated: 03/15/19 2:47 pm Comments DCP- Discharge Planning Updated by [email or web address]: Stacey Martel on 03/15/19 12:[address] Patient Name: SEVERO FINK Admission Status: ER Accout number: [id number] Admission Date: 03-14-2019 : 1930 Admission Diagnosis: Attending: HARDIK RON Current LOS: 1 Anticipated DC Date: Planned Disposition: Home Primary Insurance: [employer] Discharge Planning Comments: CM met with patient to discuss discharge planning/needs, he is alone in the room. He states he lives at [facility]. He states his son will take him home on discharge. He states he was using his cane for ambulation. He has a rollator walker, but hasn't been having to use it. He states he wears oxygen at 2L NC at bedtime only. His DME for oxygen is [employer]. He states [facility] just discharged him from their services and he declines to have home long restarted at this time. He states he no longer drives, but his daughter in law drives him to the store and anywhere he needs to go. He has correction come in 3 times a week for personal care. I discussed the availability of rehab, SNF, home health and additional DME and he declines need at this time. He states he will go back home on discharge and feels this is a safe discharge. CM will continue to follow and assist with discharge planning/needs. Defensive Line Coach: Stacey Martel DCPIA - Discharge Planning Initial Assessment Updated by [email or web address]: Stacey Martel on 03/15/19 1:43 pm * Is the patient Alert and Oriented? Yes * How many steps to enter\exit or inside your home? Elevator * PCP Dr. Lyles * Pharmacy [facility] * [facility]read[facility] * Facility Name [facility] * ADLs Partial Dependent * Partial ADLs (Assistance needed) Ambulation Medication Management * Equipment Cane Grab Bars Other Oxygen * Other Equipment Rollator Walker Pull cords in the bedroom and bathroom * List name and contact numbers for known caregivers / representatives who currently or will assist patient after discharge: Sylvester anthony - [phone] * Verbal permission to speak to the caregivers and representatives has been obtained from the patient. Yes * Community resources currently utilized Other Private Duty Care * Please name any agencies selected above. [employer] [facility] [facility] * Additional services required to return to the preadmission environment? No * Can the patient safely return to the preadmission environment? Yes * Has this patient been hospitalized within the prior 30 days at any hospital? No Last DP export: 03/15/19 12:40 pm Patient Name: SEVERO FINK Page [id number] at 1347 All edits/amendments must be made on the electronic document DICTATION DATE: 03/15/191346 HOSE CEMENTER: MICKI 03/15/191346 RPT#: [id number] DC DATE: STATUS: ADM IN [facility] [address] [place] [address] END OF REPORT
--- NOTE | 2019-03-15 15:35 | NUR ---
NG REMOVED WITHOUT DIFFICULTY
[2019-03-15 15:55] VITALS: BMI 25.7
[2019-03-15 18:07] VITALS: BP 115/44
[2019-03-15 20:00] VITALS: BP 126/68
[2019-03-16] VITALS: BP 103/48
--- NOTE | 2019-03-16 01:33 | NUR ---
RESTING IN BED CALL LIGHT IN REACH, WATER IN REACH. NO NEEDS NOTED OR STATED
[2019-03-16 04:00] VITALS: BP 116/51; BP 178/94
[2019-03-16 07:02] LABS: CALC OSMOLALITY 280 mosm/kg (275-300); CALCIUM 8.6 mg/dL (8.5-10.1); CARBON DIOXIDE 28.9 mmol/L (21.0-32.0); CHLORIDE - SERUM 106 mmol/L (98-107); CREATININE - SERUM 0.7 mg/dL (0.6-1.3); GLUCOSE 95 mg/dL (74-106); PHOSPHOROUS 2.7 mg/dL (2.5-4.9); POTASSIUM - SERUM 3.8 mmol/L (3.5-5.1); SODIUM 141 mmol/L (136-145); UREA NITROGEN 13 mg/dL (7-18); eGFR NON AFRICAN AMERICAN > 90 mL/min (90-120)
[2019-03-16 07:08] LABS: BASOPHILS 0.6 % (0-2); EOSINOPHILS 4.2 % (0-7); HEMOGLOBIN 10.1 g/dL (13.5-17.5); IMMATURE GRANULOCYTES 0.2 % (0-5); LYMPHOCYTES 25.9 % (15-50); MCH 32.2 pg (26.0-34.0); MCHC 33.7 g/dL (31.0-37.0); MCV 95.5 fL (80.0-100.0); MEAN PLATELET VOLUME 10.1 fL (7.4-10.4); MONOCYTES 10.7 % (2-11); NEUTROPHILS 58.4 % (40-80); PLATELET COUNT 147 10x3/uL (130-400); RBC 3.14 10x6/uL (4.20-6.10); RDW 13.7 % (11.5-14.5); WBC 4.8 10x3/uL (4.8-10.8)
[2019-03-16] MEDS ORDERED: MIRALAX17 GM PO (09:24)
[2019-03-16 09:39] VITALS: BP 116/59
--- NOTE | 2019-03-16 10:09 | MORECARE ---
CASE MANAGEMENT DISCHARGE SUMMARY PATIENT: SEVERO FINK UNIT: [id number] ADM DATE: 03/14/19 AGE: 88 : [birth year] SEX: M ROOM/BED: D.2240 AUTHOR: DUSTIN JUAREZ PHYSICIAN: REFERRING PHYSICIAN: HARDIK RON MD DATE OF SERVICE: 03/16/19 Discharge Plan Patient Name: SEVERO FINK Facility: [facility]:[place] : 1930 Planned Disposition: Home Anticipated Discharge Date: Discharge Date: Expected LOS: Initial Reviewer: [email or web address] Initial Review Date: 03/15/2019 Generated: 03/16/19 11:08 am Comments DCP- Discharge Planning Updated by [email or web address]: Stacey Martel on 03/16/19 9:[address] Patient Name: SEVERO FINK Encounter No: [id number] : 1930 Primary Insurance: NOVASYSMCR Anticipated DC Date: Planned Disposition: Home External Planned Provider: : DCP follow-up note: Patient and family in agreement with discharge plan. No changes to plan. Case management will follow and assist as needed. Stacey Martel DCP- Discharge Planning Updated by [email or web address]: Stacey Martel on 03/15/19 12:[address] Patient Name: SEVERO FINK Admission Status: ER Accout number: [id number] Admission Date: 03-14-2019 : 1930 Admission Diagnosis: Attending: HARDIK RON Current LOS: 1 Anticipated DC Date: Planned Disposition: Home Primary Insurance: NOVASYSMCR Discharge Planning Comments: CM met with patient to discuss discharge planning/needs, he is alone in the room. He states he lives at [facility]. He states his son will take him home on discharge. He states he was using his cane for ambulation. He has a rollator walker, but hasn't been having to use it. He states he wears oxygen at 2L [place] at bedtime only. His DME for oxygen is [employer]. He states [facility] just discharged him from their services and he declines to have home long restarted at this time. He states he no longer drives, but his daughter in law drives him to the store and anywhere he needs to go. He has snf come in 3 times a week for personal care. I discussed the availability of rehab, SNF, home health and additional DME and he declines need at this time. He states he will go back home on discharge and feels this is a safe discharge. CM will continue to follow and assist with discharge planning/needs. Genetic Engineer: Staceyleigh ann Martel DCPIA - Discharge Planning Initial Assessment Updated by [email or web address]: Stacey Martel on 03/15/19 1:43 pm * Is the patient Alert and Oriented? Yes * How many steps to enter\exit or inside your home? Elevator * PCP Dr. Lyles * Pharmacy [facility] * [facility] * Facility Name [facility] * ADLs Partial Dependent * Partial ADLs (Assistance needed) Ambulation Medication Management * Equipment Cane Grab Bars Other Oxygen * Other Equipment Rollator Walker Pull cords in the bedroom and bathroom * List name and contact numbers for known caregivers / representatives who currently or will assist patient after discharge: Sylvester anthony - [phone] * Verbal permission to speak to the caregivers and representatives has been obtained from the patient. Yes * Community resources currently utilized Other Private Duty Care * Please name any agencies selected above. [employer] Custodial * Additional services required to return to the preadmission environment? No * Can the patient safely return to the preadmission environment? Yes * Has this patient been hospitalized within the prior 30 days at any hospital? No Last DP export: 03/15/19 12:47 pm Patient Name: SEVERO FINK Page 23785 at 1009 All edits/amendments must be made on the electronic document DICTATION DATE: 03/16/19 1008 HARNESS PREPARER: MICKI 03/16/19 1008 RPT#: [id number] HI DATE: STATUS: ADM IN [facility] [address] [place] [address] END OF REPORT
[2019-03-16 12:12] LABS: FOLATE (FOLIC ACID) - SERUM >20.0 ng/mL (>3.0)
--- NOTE | 2019-03-16 13:08 | NUR ---
IV REMOVED WITH CATH INTACT NO REDNESS OR EDEMA AT SITE. DISCHARGE INSTRUCTIONS GIVEN WITH PATIENT VOICING UNDERSTANDING. PATIENT TAKEN BY WHEELCHAIR TO PRIVATE CAR. SON TO TRANSPORT HOME
--- NOTE | 2019-03-20 09:46 | MORECARE ---
CASE MANAGEMENT DISCHARGE SUMMARY PATIENT: SEVERO FINK UNIT: [id number] ADM DATE: 03/14/19 AGE: 88 : [birth year] SEX: M ROOM/BED: D.2240 AUTHOR: DUSTIN JUAREZ PHYSICIAN: REFERRING PHYSICIAN: HARDIK RON MD DATE OF SERVICE: 03/20/19 Discharge Plan Patient Name: SEVERO FINK Facility: [facility]:[place] : 1930 Planned Disposition: Home Anticipated Discharge Date: Discharge Date: 03/16/2019 Expected LOS: 0 Initial Reviewer: [email or web address] Initial Review Date: 03/15/2019 Generated: 03/20/19 10:46 am Comments DCP- Discharge Planning Updated by [email or web address]: Stacey Martel on 03/16/19 9:[address] Patient Name: SEVERO FINK Encounter No: [id number] : 1930 Primary Insurance: NOVASYSMCR Anticipated DC Date: Planned Disposition: Home External Planned Provider: : DCP follow-up note: Patient and family in agreement with discharge plan. No changes to plan. Case management will follow and assist as needed. Stacey Martel DCP- Discharge Planning Updated by [email or web address]: Stacey Martel on 03/15/19 12:[address] Patient Name: SEVERO FINK Admission Status: ER Accout number: [id number] Admission Date: 03-14-2019 : 1930 Admission Diagnosis: Attending: HARDIK RON Current LOS: 1 Anticipated DC Date: Planned Disposition: Home Primary Insurance: NOVASYSMCR Discharge Planning Comments: CM met with patient to discuss discharge planning/needs, he is alone in the room. He states he lives at [facility]. He states his son will take him home on discharge. He states he was using his cane for ambulation. He has a rollator walker, but hasn't been having to use it. He states he wears oxygen at 2L [place] at bedtime only. His DME for oxygen is [employer]. He states [facility] just discharged him from their services and he declines to have home long restarted at this time. He states he no longer drives, but his daughter in law drives him to the store and anywhere he needs to go. He has long term come in 3 times a week for personal care. I discussed the availability of rehab, SNF, home health and additional DME and he declines need at this time. He states he will go back home on discharge and feels this is a safe discharge. CM will continue to follow and assist with discharge planning/needs. Drafter Geophysical: Stacey Martel DCPIA - Discharge Planning Initial Assessment Updated by [email or web address]: Stacey Tahmina on 03/15/19 1:43 pm * Is the patient Alert and Oriented? Yes * How many steps to enter\exit or inside your home? Elevator * PCP Dr. Lyles * Pharmacy [facility] [address] * Preadmission Environment [facility] * Facility Name [facility] * ADLs Partial Dependent * Partial ADLs (Assistance needed) Ambulation Medication Management * Equipment Cane Grab Bars Other Oxygen * Other Equipment Rollator Walker Pull cords in the bedroom and bathroom * List name and contact numbers for known caregivers / representatives who currently or will assist patient after discharge: Sylvester anthony - [phone] * Verbal permission to speak to the caregivers and representatives has been obtained from the patient. Yes * Community resources currently utilized Other Private Duty Care * Please name any agencies selected above. [employer] [facility] * Additional services required to return to the preadmission environment? No * Can the patient safely return to the preadmission environment? Yes * Has this patient been hospitalized within the prior 30 days at any hospital? No Last DP export: 03/16/19 9:09 am Patient Name: SEVERO FINK Page 68515 at 0946 All edits/amendments must be made on the electronic document DICTATION DATE: 03/20/19945 FURNITURE DECALS INSPECTOR: MICKI 03/20/19945 RPT#: [id number] DC DATE:03/16/19 STATUS: DIS IN [facility] [address] [place] [address] END OF REPORT
== END 2019-03-16 13:10 | disposition home or self-care (01) | DRG 390 ==
LOC: D.ER 05:47 → D.MS 10:28
PROVIDERS: Emergency Medicine; Family Medicine; ADMIT Internal Medicine Nephrology; ATTEND Internal Medicine Nephrology
DX: K56.600 Partial intestinal obstruction, unspecified as to cause (principal); D64.9 Anemia, unspecified; I25.10 Atherosclerotic heart disease of native coronary artery without angina pectoris; J44.9 Chronic obstructive pulmonary disease, unspecified; I10 Essential (primary) hypertension; F32.9 Major depressive disorder, single episode, unspecified; Z87.891 Personal history of nicotine dependence

== ENCOUNTER → 2019-04-09 08:54 | Outpatient (CLI) | payer OTHER ==
[2019-03-15 15:55] VITALS: BMI 25.7
[~2019-04-09 08:54] MED LIST changes: +COLACE100 MG PO; +DONEPEZIL HCL5 MG PO; +MIRALAX17 GM PO
== END | disposition home or self-care (01) ==
LOC: D.CT 08:54
PROVIDERS: ATTEND Internal Medicine Cardiovascular Disease
DX: I65.23 Occlusion and stenosis of bilateral carotid arteries (principal); R94.39 Abnormal result of other cardiovascular function study

== ENCOUNTER 2019-04-21 20:26 | Emergency (ER) | payer OTHER, MEDICAID ==
[~2019-04-21] VITALS: Ht 170.2 cm; Wt 72.7 kg
[2019-04-21 20:34] VITALS: Ht 170.2 cm; Wt 72.7 kg
[2019-04-21] MEDS ORDERED: ERYTHROMYCIN OPT1 GM EACH EYE (21:37)
[2019-04-21 21:50] VITALS: BP 133/92
== END 2019-04-21 21:50 | disposition home or self-care (01) ==
LOC: D.ER 20:26
DX: S05.02XA Injury of conjunctiva and corneal abrasion without foreign body, left eye, initial encounter (principal); X58.XXXA Exposure to other specified factors, initial encounter; I10 Essential (primary) hypertension; J44.9 Chronic obstructive pulmonary disease, unspecified

== ENCOUNTER 2019-09-22 19:22 | Emergency (ER) | payer OTHER, MEDICAID ==
[~2019-09-22] VITALS: Ht 170.2 cm; Wt 75.0 kg
[~2019-09-22 19:22] MED LIST changes: +ERYTHROMYCIN OPT1 GM EACH EYE
[2019-09-22 19:30] VITALS: Ht 170.2 cm; Wt 75.0 kg
[2019-09-22 20:01] LABS: BASOPHILS 0.3 % (0-2); EOSINOPHILS 2.8 % (0-7); HEMATOCRIT 35.2 % (42.0-54.0); IMMATURE GRANULOCYTES 0.3 % (0-5); LYMPHOCYTES 34.3 % (15-50); MCH 32.1 pg (26.0-34.0); MCHC 34.1 g/dL (31.0-37.0); MCV 94.1 fL (80.0-100.0); MEAN PLATELET VOLUME 9.8 fL (7.4-10.4); MONOCYTES 13.2 % (2-11); NEUTROPHILS 49.1 % (40-80); RBC 3.74 10x6/uL (4.20-6.10); RDW 12.7 % (11.5-14.5); WBC 6.1 10x3/uL (4.8-10.8)
[2019-09-22 20:11] LABS: PLATELET COUNT 204 10x3/uL (130-400)
[2019-09-22 20:14] LABS: CALC OSMOLALITY 282 mosm/kg (275-300); CALCIUM 9.2 mg/dL (8.5-10.1); CARBON DIOXIDE 29.9 mmol/L (21.0-32.0); CHLORIDE - SERUM 104 mmol/L (98-107); CREATININE - SERUM 0.7 mg/dL (0.6-1.3); GLUCOSE 96 mg/dL (74-106); POTASSIUM - SERUM 4.3 mmol/L (3.5-5.1); SODIUM 140 mmol/L (136-145); UREA NITROGEN 23 mg/dL (7-18); eGFR NON AFRICAN AMERICAN > 90 mL/min (90-120)
[2019-09-22 20:19] LABS: ALBUMIN 3.5 g/dL (3.4-5.0); ALKALINE PHOSPHATASE 86 U/L (46-116); ALT (SGPT) 29 U/L (10-68); BILIRUBIN - TOTAL 0.45 mg/dL (0.2-1.3); PROTEIN - SERUM 6.6 g/dL (6.4-8.2)
[2019-09-22] MEDS ORDERED: ALBUTEROL SULF8.5 GM INH (20:33)
[2019-09-22] MEDS ORDERED: LEVOFLOXACIN500 MG PO (20:33)
[2019-09-22 21:39] VITALS: BP 132/77
== END 2019-09-22 21:40 | disposition home or self-care (01) ==
LOC: D.ER 19:22
PROVIDERS: Emergency Medicine
DX: J40 Bronchitis, not specified as acute or chronic (principal); F03.90 Unspecified dementia, unspecified severity, without behavioral disturbance, psychotic disturbance, mood disturbance, and anxiety; I25.2 Old myocardial infarction; I10 Essential (primary) hypertension; Z95.1 Presence of aortocoronary bypass graft; E78.5 Hyperlipidemia, unspecified; Z99.81 Dependence on supplemental oxygen

== ENCOUNTER → 2019-10-31 09:40 | Outpatient (CLI) | payer OTHER, MEDICAID ==
[2019-09-22 19:30] VITALS: BMI 25.9
[~2019-10-31 09:40] MED LIST changes: +ALBUTEROL SULF8.5 GM INH; +LEVOFLOXACIN500 MG PO
== END | disposition home or self-care (01) ==
LOC: D.US 09:30
PROVIDERS: ATTEND Internal Medicine Cardiovascular Disease
DX: I65.23 Occlusion and stenosis of bilateral carotid arteries (principal)